=== PATIENT | male | born 1990 | race Caucasian/White ===

== ENCOUNTER 2023-05-08 10:52 | Emergency (ER) | payer BC ==
[~2023-05-08] VITALS: Ht 175.3 cm; Wt 78.0 kg
[2023-05-08 11:01] VITALS: O2SAT 100
[2023-05-08 11:52] LABS: HEMATOCRIT. 43.3 % (42.0-52.0); HEMOGLOBIN. 14.4 g/dL (14.0-18.0); MEAN CORPUSCULAR HEMOGLOBIN 29.2 pg (28.0-32.0); MEAN CORPUSCULAR HGB CONC 33.4 g/dL (31.0-37.0); MEAN CORPUSCULAR VOLUME 87.4 fL (80.0-94.0); MEAN PLATELET VOLUME 8.7 fl (7.4-10.4); PLATELET 167 x1000/uL (130-400); RED BLOOD CELL COUNT 4.95 mill/uL (4.7-6.1); RED CELL DISTRIBUTION WIDTH 12.8 % (11.6-14.6); WHITE BLOOD COUNT 14.6 x1000/uL (4.5-11.0)
[2023-05-08 12:01] LABS: DIFFERENTIAL COMMENT 1
[2023-05-08 12:06] LABS: ALANINE AMINOTRANSFERASE 24 IU/L (10-49); ALBUMIN 4.2 g/dL (3.2-4.8); ASPARTATE AMINOTRANSFERASE 23 IU/L (<34); BILIRUBIN TOTAL 0.9 mg/dL (0.1-1.0); CALCIUM 9.4 mg/dL (8.7-10.4); CARBON DIOXIDE 21 mEq/L (21-32); CHLORIDE 103 mEq/L (98-107); ETHANOL BLOOD < 10 mg/dL (<10); GLUCOSE 120 mg/dL (70-105); POTASSIUM 3.2 mEq/L (3.5-5.1); PROTEIN TOTAL 6.8 g/dL (6.0-8.3); SODIUM 137 mEq/L (136-145); UREA NITROGEN BLOOD 12 mg/dL (9-23)
[2023-05-08] MEDS: KETOROLAC 30MG/ML VIAL IV NR (12:30)
[2023-05-08 12:36] LABS: PROTHROMBIN TIME 11.5 sec (9.6-11.0)
[2023-05-08] MEDS ORDERED: KETOROLAC 30MG/ML VIAL IV STA (12:38)
[2023-05-08] MEDS ORDERED: METOCLOPRAMIDE HCL 10MG/2ML VIAL IV ONE (12:45)
[2023-05-08 12:52] LABS: PLATELET ESTIMATE NORMAL
[2023-05-08 12:53] LABS: TROPONIN I HIGH SENSITIVITY < 4 ng/L (3.0-53)
[2023-05-08] MEDS: IOHEXOL-350 100 ML BOTTLE ONE (13:10)
[2023-05-08] MEDS ORDERED: GUAIFENESIN 200MG/10ML SUGAR FREE UDC PO PRN (14:15)
[2023-05-08] MEDS ORDERED: ONDANSETRON HCL 4MG/2ML INJ IV PRN (14:15)
[2023-05-08] MEDS ORDERED: IPRATROPIUM/ALBUTEROL 0.5-3(2.5)MG/3ML NEB HHN PRN (14:15)
[2023-05-08] MEDS ORDERED: ACETAMINOPHEN 325MG TABLET PO PRN (14:15)
[2023-05-08] MEDS ORDERED: ACETAMINOPHEN 650MG/20.3ML UDC GT PRN (14:15)
[2023-05-08] MEDS ORDERED: CLONIDINE 0.1MG TABLET PO PRN (14:15)
[2023-05-08] MEDS ORDERED: DOCUSATE SODIUM 100MG CAPSULE PO PRN (14:15)
[2023-05-08] MEDS ORDERED: MAGNESIUM/ALUMINUM HYDROXIDE/SIMETHICONE 30ML UDC PO PRN (14:15)
[2023-05-08] MEDS ORDERED: LACTATED RINGERS 1,000 ML IV SCH (14:30)
[2023-05-08 15:06] LABS: AMYLASE 69 IU/L (30-118)
[2023-05-08 15:14] LABS: AMMONIA < 10 uMol/L (<32)
[2023-05-08 15:22] LABS: HEPATITIS A AB IGM NEGATIVE (Negative); HEPATITIS B CORE AB IGM NEGATIVE (Negative); HEPATITIS B SURFACE ANTIGEN NEGATIVE (Negative); HEPATITIS C AB NON REACTIVE (Neg) (Negative)
[2023-05-08] MEDS: SODIUM CHLORIDE 0.9% 1,000 ML IV ONE (15:53)
[2023-05-08] MEDS ORDERED: VANCOMYCIN 1,750 MG in DEXT 5% WATER 500 ML IV NR (16:00)
[2023-05-08] MEDS ORDERED: POTASSIUM CHLORIDE INJ 40 MEQ in DEXT 5% WATER 500 ML IV NR (16:00)
[2023-05-08] MEDS ORDERED: CEFTRIAXONE 2 G in DEXTROSE 5% WATER 50 ML IV SCH (16:00)
[2023-05-08 16:02] VITALS: BP 126/82; PULSE 96; RESP 18; TEMP 98.6
[2023-05-08] MEDS: METOCLOPRAMIDE HCL 10MG/2ML VIAL IV NR (16:13)
[2023-05-08] MEDS ORDERED: PANTOPRAZOLE SODIUM 40 MG/VIAL IV SCH (16:15)
[2023-05-08] MEDS ORDERED: IBUPROFEN 400MG TABLET PO PRN (16:30)
[2023-05-09] MEDS ORDERED: VANCOMYCIN 750MG PREMIX 150 ML IV SCH
[2023-05-09] MEDS ORDERED: IOHEXOL-350 100 ML BOTTLE ONE (15:38)
== END 2023-05-08 16:44 | disposition left against medical advice (07) ==
LOC: ER 11:19 → EDBEDREQSVC 12:41 → EDBEDREQTM 12:41 → EDBEDREQ 12:41 → EDBEDREQTM 12:54 → ER 16:44 → CANBEDREQ 05-09 01:20
DX: R51.9 Headache, unspecified (principal); R11.2 Nausea with vomiting, unspecified; F19.90 Other psychoactive substance use, unspecified, uncomplicated; G93.40 Encephalopathy, unspecified
CPT/HCPCS: 80053; 80320; 82140; 82150; 82962; 83605; 83690; 85025; 85610; 87340; 87040; 84484; 36415; 86705; 86709; 84145; 71045; 70496; 70498; 70450; 93005; 96361; 96374; 96375; 99285; Q9967; J0696; J1885; J2765; J3480; J3370; J7060 ×2; J7030; Z7610 ×3; C1893; G0480